=== PATIENT | male | born 1945 | race Caucasian/White ===

== ENCOUNTER 2018-12-01 09:56 | Inpatient (IN) | payer OTHER ==
[~2018-12-01] VITALS: Ht 182.9 cm; Wt 98.7 kg
[2018-12-01] MEDS: metFORMIN 500 MG TABLET PO SCH ×2 (08:00→18:40)
[2018-12-01 10:36] LABS: BASOPHILS # (AUTO) 0.05 x10^3/uL (0-0.1); BASOPHILS % (AUTO) 1 % (0-1); EOSINOPHILS # (AUTO) 0.48 x10^3/uL (0-0.4); EOSINOPHILS % (AUTO) 7 % (1-7); LYMPHOCYTES # (AUTO) 1.69 x10^3/uL (1-3.4); LYMPHOCYTES % (AUTO) 25 % (22-44); MD NO; MEAN CORPUSCULAR HEMOGLOBIN 29.2 pg (27.5-34.5); MEAN CORPUSCULAR HGB CONC 31.9 g/dL (33.2-36.2); MEAN CORPUSCULAR VOLUME 91.4 fL (81-97); MEAN PLATELET VOLUME 8.6 fL (7.4-10.4); MONOCYTES # (AUTO) 0.49 x10^3/uL (0.2-0.8); MONOCYTES % (AUTO) 7 % (2-9); NEUTROPHILS # (AUTO) 4.06 x10^3/uL (1.8-6.8); NEUTROPHILS % (AUTO) 60 % (42-75); PLATELET COUNT 253 x10^3/uL (130-400); RED BLOOD COUNT 4.43 x10^6/uL (4.38-5.82); RED CELL DISTRIBUTION WIDTH 15.9 % (9.4-14.8)
[2018-12-01] MEDS ORDERED: ATOR40TA78 PO (10:45)
[2018-12-01] MEDS ORDERED: VENL75TA PO (10:45)
[2018-12-01] MEDS ORDERED: LOSA25TA25 PO (10:45)
[2018-12-01] MEDS ORDERED: GLIP5TAB10 PO (10:45)
[2018-12-01] MEDS ORDERED: CARV6.252 PO (10:45)
[2018-12-01] MEDS ORDERED: FURO40TA6 PO (10:45)
[2018-12-01] MEDS ORDERED: METF1000 PO (10:45)
[2018-12-01 10:46] LABS: INTERNATIONAL NORMALIZED RATIO 1.01 (0.93-1.1); PROTHROMBIN TIME 10.6 Seconds (9.6-11.5)
--- NOTE | 2018-12-01 11:05 | NUR ---
REPORT FROM GIOVANNI RUSSELL, PT MOVED TO ROOM 17, ASSUMED CARE OF PT AT THIS TIME. NEUROLOGIST AT BEDSIDE
--- NOTE | 2018-12-01 11:28 | NUR ---
PT REFUSING TO USE URINAL, AMBULATED TO BATHROOM WITH STEADY GAIT.
[2018-12-01] MEDS ORDERED: OMNIPAQUE 350 MG/ML, 100ML BOTTLE ONE (11:56)
--- NOTE | 2018-12-01 12:08 | NUR ---
REPORT TO TY RUSSELL
[2018-12-01 14:18] VITALS: BP 178/71
[2018-12-01] MEDS ORDERED: hydrALAzine 20 MG/ML, 1ML IVPush PRN (18:30)
[2018-12-01] MEDS ORDERED: ONDANSETRON 2MG/ML, 2ML IVPush PRN (18:30)
[2018-12-01] MEDS ORDERED: ONDANSETRON ODT 4 MG PO PRN (18:30)
[2018-12-01 19:14] LABS: FREE T4 (FREE THYROXINE) 0.86 ng/dL (0.76-1.46); TROPONIN I 0.025 ng/mL (0.000-0.045)
[2018-12-01 19:19] VITALS: BP 149/77
[2018-12-01 19:33] LABS: HEMOGLOBIN A1C 6.1 % (4.2-6.3)
[2018-12-01] MEDS: INSULIN LISPRO 100 UNITS/ML, PEN SQ-INSULIN SCH (20:46)
[2018-12-01] MEDS ORDERED: ATORVASTATIN 80 MG TABLET PO SCH (21:00)
[2018-12-01] MEDS ORDERED: CARVEDILOL 6.25 MG TABLET PO SCH (21:00)
[2018-12-01] MEDS: FAMOTIDINE 20 MG TABLET PO SCH (21:09)
[2018-12-01 21:50] LABS: MICROSCOPIC NOT IND
[2018-12-01 21:52] LABS: CULTURE INDICATED? NO
[2018-12-02 00:39] VITALS: BP 111/66
[2018-12-02 01:02] LABS: TROPONIN I 0.038 ng/mL (0.000-0.045)
[2018-12-02 05:31] LABS: BASOPHILS # (AUTO) 0.06 x10^3/uL (0-0.1); BASOPHILS % (AUTO) 1 % (0-1); EOSINOPHILS # (AUTO) 0.53 x10^3/uL (0-0.4); EOSINOPHILS % (AUTO) 6 % (1-7); LYMPHOCYTES # (AUTO) 3.47 x10^3/uL (1-3.4); LYMPHOCYTES % (AUTO) 40 % (22-44); MD NO; MEAN CORPUSCULAR HEMOGLOBIN 29.2 pg (27.5-34.5); MEAN CORPUSCULAR HGB CONC 31.8 g/dL (33.2-36.2); MEAN CORPUSCULAR VOLUME 91.8 fL (81-97); MEAN PLATELET VOLUME 8.8 fL (7.4-10.4); MONOCYTES # (AUTO) 0.72 x10^3/uL (0.2-0.8); MONOCYTES % (AUTO) 8 % (2-9); NEUTROPHILS % (AUTO) 46 % (42-75); PLATELET COUNT 225 x10^3/uL (130-400); RED BLOOD COUNT 4.63 x10^6/uL (4.38-5.82); RED CELL DISTRIBUTION WIDTH 16.1 % (9.4-14.8)
[2018-12-02 05:43] LABS: CHLORIDE 111 mmol/L (98-107)
[2018-12-02 05:50] LABS: ANION GAP 6 mmol/L (5-15); CHOLESTEROL, TOTAL 94 mg/dL (140-239); CREATININE 0.97 mg/dL (0.7-1.3); HDL CHOL % 33 % (26-37); HDL CHOLESTEROL (DIRECT) 31 mg/dL (40-60); LDL CHOLESTEROL,CALCULATED 42 mg/dL (54-169); LDL/HDL RATIO 1.4 (0.5-3.0); TRIGLYCERIDES 104 mg/dL (50-200); VLDL CHOLESTEROL 21 mg/dL (0-25)
[2018-12-02] MEDS: INSULIN LISPRO 100 UNITS/ML, PEN SQ-INSULIN SCH ×3 (07:00→16:00)
[2018-12-02 07:32] VITALS: BP 126/75
[2018-12-02] MEDS: FAMOTIDINE 20 MG TABLET PO SCH (08:18)
[2018-12-02] MEDS: metFORMIN 500 MG TABLET PO SCH (08:19)
[2018-12-02] MEDS ORDERED: LOSARTAN 25MG TABLET PO SCH (09:00)
[2018-12-02] MEDS ORDERED: ASPIRIN 81 MG TABLET CHEW PO SCH (09:00)
[2018-12-02] MEDS ORDERED: CLOPIDOGREL 75 MG TABLET PO SCH (09:00)
[2018-12-02] MEDS ORDERED: VENLAFAXINE 75MG TABLET PO SCH (09:00)
[2018-12-02] MEDS ORDERED: FUROSEMIDE 40 MG TABLET PO SCH (09:00)
[2018-12-02] MEDS ORDERED: LEVETIRACETAM 1,000 MG in SODIUM CHLORIDE 0.9% 100 ML IV ONE (10:00)
[2018-12-02] MEDS ORDERED: LEVETIRACETAM 500 MG TABLET PO SCH (10:00)
[2018-12-02] MEDS ORDERED: CLOP75TA PO (15:27)
[2018-12-02] MEDS ORDERED: LEVE500T8 PO (15:27)
[2018-12-02 16:29] VITALS: BP 118/70
== END 2018-12-02 17:00 | disposition home or self-care (01) | DRG 100 ==
LOC: ED 11:19 → EDIP 11:43 → 4WST 12:31 → DCLOUNGE 12-02 16:49
PROVIDERS: ADMIT Emergency Medicine; ATTEND Emergency Medicine
PROC: B3151ZZ Fluoroscopy of Bilateral Common Carotid Arteries using Low Osmolar Contrast (ICD-10-PCS; principal; 2018-12-01)
PROC: B31G1ZZ Fluoroscopy of Bilateral Vertebral Arteries using Low Osmolar Contrast (ICD-10-PCS; 2018-12-01)
PROC: B3181ZZ Fluoroscopy of Bilateral Internal Carotid Arteries using Low Osmolar Contrast (ICD-10-PCS; 2018-12-01)
PROC: B3191ZZ Fluoroscopy of Right External Carotid Artery using Low Osmolar Contrast (ICD-10-PCS; 2018-12-01)
DX: R56.9 Unspecified convulsions (principal); S06.5X0A Traumatic subdural hemorrhage without loss of consciousness, initial encounter; I69.351 Hemiplegia and hemiparesis following cerebral infarction affecting right dominant side; E11.9 Type 2 diabetes mellitus without complications; E78.5 Hyperlipidemia, unspecified; I10 Essential (primary) hypertension; I25.10 Atherosclerotic heart disease of native coronary artery without angina pectoris; R32 Unspecified urinary incontinence; I65.23 Occlusion and stenosis of bilateral carotid arteries; Z82.49 Family history of ischemic heart disease and other diseases of the circulatory system; Z83.3 Family history of diabetes mellitus; Z87.891 Personal history of nicotine dependence; Z95.1 Presence of aortocoronary bypass graft; Z90.49 Acquired absence of other specified parts of digestive tract; Y93.89 Activity, other specified; Y92.89 Other specified places as the place of occurrence of the external cause; Y99.8 Other external cause status; W18.30XA Fall on same level, unspecified, initial encounter
CPT/HCPCS: 36415; 70450; 70496; 70498; 70551; 80047; 80048; 80061; 81003; 82550; 82962; 83036; 84100; 84439; 84443; 84484; 85025; 85610; 85730; 93005; 95819; 99291; G0378; J1953; Q9967

== ENCOUNTER → 2020-01-13 | Outpatient (CLI) | payer OTHER ==
[~2020-01-13] MED LIST: ATOR40TA78 PO; CARV6.252 PO; CLOP75TA PO; FURO40TA6 PO; GLIP5TAB10 PO; LEVE500T8 PO; LOSA25TA25 PO; METF1000 PO; REGADENOSON 0.4 MG/5 ML SYRINGE ONE; VENL75TA PO
== END | disposition home or self-care (01) ==
LOC: CFH 12:50 → EDSTATUS 16:15
PROVIDERS: ATTEND Internal Medicine Cardiovascular Disease
DX: I21.29 ST elevation (STEMI) myocardial infarction involving other sites (principal); I25.10 Atherosclerotic heart disease of native coronary artery without angina pectoris; I25.5 Ischemic cardiomyopathy; I10 Essential (primary) hypertension; I63.512 Cerebral infarction due to unspecified occlusion or stenosis of left middle cerebral artery
CPT/HCPCS: 78452; 93017; 93306; A9502; J2785